=== PATIENT | female | born 1990 | race Caucasian/White ===

== ENCOUNTER → 2017-03-27 | Outpatient (CLI) | payer OTHER ==
[~2017-03-27] MED LIST: COLA100C5 PO; IBUP80TA PO; LANOOIN21 EX; LORT5TAB PO; MILKSUS PO; PRENTAB9 PO
[2017-03-27 12:35] LABS: BASO % 0.3 % (0.0-1.0); EOS # 0.2 K/mm3 (0.0-0.50); EOS % 2.8 % (0.0-3.0); LARGE UNSTAINED CELL # 0.1 K/mm3 (0.0-0.4); LARGE UNSTAINED CELL % 1.5 % (0.0-4.0); LYMPH # 1.9 K/mm3 (1.5-6.5); LYMPH % 23.9 % (24.0-44.0); MEAN CORPUSCULAR HEMOGLOBIN 26.6 pg (27.0-33.0); MEAN CORPUSCULAR HGB CONC 32.4 g/dl (32.0-36.5); MEAN CORPUSCULAR VOLUME 82.1 fl (80.0-96.0); MONO # 0.3 K/mm3 (0.0-0.8); MONO % 4.2 % (0.0-5.0); NEUTROPHILS # 5.3 K/mm3 (1.8-7.7); NEUTROPHILS % 67.2 % (36.0-66.0); PLATELET COUNT, AUTOMATED 264 k/mm3 (150-450); RED CELL DISTRIBUTION WIDTH 13.2 % (11.5-14.5); WHITE BLOOD COUNT 7.9 K/mm3 (4.0-10.0)
[2017-03-27 12:58] LABS: ALBUMIN 3.8 GM/DL (3.2-5.2); ALBUMIN/GLOBULIN RATIO 1.19 (1.00-1.93); ALKALINE PHOSPHATASE 96 U/L (45-117); ALT/SGPT 19 U/L (12-78); ANION GAP 8 MEQ/L (8-16); AST/SGOT 10 U/L (15-37); BILIRUBIN,TOTAL 0.3 MG/DL (0.2-1.0); BLOOD UREA NITROGEN 11 MG/DL (7-18); CALCIUM LEVEL 8.8 MG/DL (8.5-10.1); CARBON DIOXIDE LEVEL 28 MEQ/L (21-32); CHLORIDE LEVEL 103 MEQ/L (98-107); CHOLESTEROL LEVEL 183 MG/DL (<200); CREATININE FOR GFR 0.76 MG/DL (0.55-1.02); FREE T4 0.92 NG/DL (0.76-1.46); GLOMERULAR FILTRATION RATE > 60.0 (>60); GLUCOSE, FASTING 77 MG/DL (70-105); POTASSIUM SERUM 4.3 MEQ/L (3.5-5.1); SODIUM LEVEL 139 MEQ/L (136-145); TRIGLYCERIDES LEVEL 129 MG/DL (<150)
== END ==
LOC: M LAB 11:43
PROVIDERS: ATTEND Nurse Practitioner Family
DX: Z00.00 Encounter for general adult medical examination without abnormal findings (principal); E66.9 Obesity, unspecified; Z13.220 Encounter for screening for lipoid disorders

== ENCOUNTER → 2018-10-12 | Outpatient (REF) | payer OTHER ==
[~2018-10-12] MED LIST changes: +MILK120011 PO; -MILKSUS PO
[2018-10-12 11:47] LABS: HEMOGLOBIN 11.8 g/dl (12.0-15.5); MEAN CORPUSCULAR HEMOGLOBIN 26.7 pg (27.0-33.0); MEAN CORPUSCULAR HGB CONC 31.1 g/dl (32.0-36.5); PLATELET COUNT, AUTOMATED 240 10^3/uL (150-450); RED BLOOD COUNT 4.42 10^6/uL (4.00-5.40); WHITE BLOOD COUNT 4.9 10^3/uL (4.0-10.0)
[2018-10-12 12:19] LABS: ALBUMIN 3.8 GM/DL (3.2-5.2); ALT/SGPT 22 U/L (12-78); BILIRUBIN,TOTAL 0.4 MG/DL (0.2-1.0); BLOOD UREA NITROGEN 11 MG/DL (7-18); CALCIUM LEVEL 8.7 MG/DL (8.5-10.1); CARBON DIOXIDE LEVEL 27 MEQ/L (21-32); CHLORIDE LEVEL 108 MEQ/L (98-107); CHOLESTEROL LEVEL 147 MG/DL (<200); CHOLESTEROL RISK RATIO 4.593 (<5); CREATININE FOR GFR 0.73 MG/DL (0.55-1.30); FREE T4 1.06 NG/DL (0.76-1.46); GLOMERULAR FILTRATION RATE > 60.0 (>60); GLUCOSE, FASTING 84 MG/DL (70-100); HDL CHOLESTEROL 32 MG/DL (>40); LDL CHOLESTEROL 99 MG/DL (<100); NON-HDL-C 115 MG/DL; POTASSIUM SERUM 4.3 MEQ/L (3.5-5.1); SODIUM LEVEL 141 MEQ/L (136-145); THYROID STIMULATING HORMONE 0.799 uIU/ML (0.358-3.740); TOTAL 25(OH) VITAMIN D 13.9 NG/ML (30.0-100.0); TOTAL PROTEIN 6.7 GM/DL (6.4-8.2); TRIGLYCERIDES LEVEL 82 MG/DL (<150)
== END ==
LOC: M SFHCPLAZ 08:32
PROVIDERS: ATTEND Physician Assistant
DX: J02.9 Acute pharyngitis, unspecified (principal); E55.9 Vitamin D deficiency, unspecified; E78.5 Hyperlipidemia, unspecified

== ENCOUNTER → 2018-11-16 | Outpatient (REF) | payer OTHER ==
[2018-11-16 12:08] LABS: FOLATE 11.1 NG/ML (>5.4); PERCENT SATURATION 16.7 % (13.2-45.0)
== END ==
LOC: M SFHCPLAZ 10:00
PROVIDERS: ATTEND Physician Assistant
DX: D64.9 Anemia, unspecified (principal)

== ENCOUNTER → 2018-11-26 | Outpatient (REF) | payer OTHER ==
[2018-11-26 14:02] LABS: HEMATOCRIT 36.6 % (36.0-47.0); HEMOGLOBIN 11.8 g/dl (12.0-15.5); MEAN CORPUSCULAR HEMOGLOBIN 27.3 pg (27.0-33.0); MEAN CORPUSCULAR HGB CONC 32.2 g/dl (32.0-36.5); MEAN CORPUSCULAR VOLUME 84.7 fl (80.0-96.0); PLATELET COUNT, AUTOMATED 276 10^3/uL (150-450); RED BLOOD COUNT 4.32 10^6/uL (4.00-5.40); WHITE BLOOD COUNT 6.5 10^3/uL (4.0-10.0)
== END ==
LOC: M SFHCPLAZ 11:26
PROVIDERS: ATTEND Family Medicine
DX: D64.9 Anemia, unspecified (principal)

== ENCOUNTER → 2019-05-25 | Outpatient (REF) | payer OTHER ==
[2019-05-25 11:57] LABS: BASO % 0.3 % (0.0-1.0); EOS # 0.2 10^3/uL (0.0-0.5); EOS % 2.7 % (0.0-3.0); HEMATOCRIT 41.4 % (36.0-47.0); LYMPH # 1.4 10^3/uL (1.5-5.0); LYMPH % 18.9 % (24.0-44.0); MEAN CORPUSCULAR HEMOGLOBIN 27.6 pg (27.0-33.0); MEAN CORPUSCULAR HGB CONC 31.4 g/dl (32.0-36.5); MEAN CORPUSCULAR VOLUME 87.9 fl (80.0-96.0); MONO # 0.4 10^3/uL (0.0-0.8); MONO % 5.3 % (0.0-5.0); NEUTROPHILS # 5.3 10^3/uL (1.5-8.5); NEUTROPHILS % 72.4 % (36.0-66.0); PLATELET COUNT, AUTOMATED 275 10^3/uL (150-450); RED BLOOD COUNT 4.71 10^6/uL (4.00-5.40); WHITE BLOOD COUNT 7.4 10^3/uL (4.0-10.0)
[2019-05-25 12:16] LABS: HCG, SERUM QUALITATIVE NEGATIVE (NEGATIVE)
[2019-05-25 12:18] LABS: ALBUMIN 3.8 GM/DL (3.2-5.2); ALT/SGPT 22 U/L (12-78); BILIRUBIN,TOTAL 0.5 MG/DL (0.2-1.0); BLOOD UREA NITROGEN 9 MG/DL (7-18); CALCIUM LEVEL 8.9 MG/DL (8.5-10.1); CARBON DIOXIDE LEVEL 28 MEQ/L (21-32); CHLORIDE LEVEL 108 MEQ/L (98-107); CREATININE FOR GFR 0.88 MG/DL (0.55-1.30); FREE T4 0.98 NG/DL (0.76-1.46); GLOMERULAR FILTRATION RATE > 60.0 (>60); GLUCOSE, FASTING 85 MG/DL (70-100); POTASSIUM SERUM 4.2 MEQ/L (3.5-5.1); SODIUM LEVEL 140 MEQ/L (136-145)
== END ==
LOC: M SFHCPLAZ 09:17
PROVIDERS: ATTEND Family Medicine
DX: R11.0 Nausea (principal); N92.0 Excessive and frequent menstruation with regular cycle; R23.2 Flushing

== ENCOUNTER 2019-08-12 07:47 | Emergency (ER) | payer OTHER ==
[~2019-08-12] VITALS: Ht 162.6 cm; Wt 112.3 kg
[2019-08-12 08:33] LABS: BASO % 0.3 % (0.0-1.0); EOS # 0.1 10^3/uL (0.0-0.5); EOS % 1.3 % (0.0-3.0); HEMATOCRIT 39.3 % (36.0-47.0); LYMPH # 1.6 10^3/uL (1.5-5.0); LYMPH % 27.3 % (24.0-44.0); MEAN CORPUSCULAR HEMOGLOBIN 27.6 pg (27.0-33.0); MEAN CORPUSCULAR HGB CONC 33.1 g/dl (32.0-36.5); MEAN CORPUSCULAR VOLUME 83.4 fl (80.0-96.0); MONO # 0.3 10^3/uL (0.0-0.8); MONO % 5.3 % (0.0-5.0); NEUTROPHILS # 3.9 10^3/uL (1.5-8.5); NEUTROPHILS % 65.5 % (36.0-66.0); PLATELET COUNT, AUTOMATED 255 10^3/uL (150-450); RED BLOOD COUNT 4.71 10^6/uL (4.00-5.40)
[2019-08-12] MEDS ORDERED: KETOROLAC 30 MG/ML VIAL (J1885) IV ONE (09:00)
[2019-08-12] MEDS ORDERED: NS 1,000 ML IV ONE (09:00)
[2019-08-12] MEDS ORDERED: ONDANSETRON 4MG/2ML VIAL (J2405) IV ONE (09:00)
[2019-08-12 09:12] LABS: ALBUMIN 3.7 GM/DL (3.2-5.2); ALT/SGPT 62 U/L (12-78); AMYLASE 26 U/L (25-115); BILIRUBIN,DIRECT < 0.1 MG/DL (0.0-0.2); BILIRUBIN,TOTAL 0.5 MG/DL (0.2-1.0); BLOOD UREA NITROGEN 13 MG/DL (7-18); CALCIUM LEVEL 8.4 MG/DL (8.5-10.1); CARBON DIOXIDE LEVEL 24 MEQ/L (21-32); CHLORIDE LEVEL 108 MEQ/L (98-107); CREATININE FOR GFR 0.96 MG/DL (0.55-1.30); GLOMERULAR FILTRATION RATE > 60.0 (>60); GLUCOSE, FASTING 94 MG/DL (70-100); LIPASE 138 U/L (73-393); POTASSIUM SERUM 3.8 MEQ/L (3.5-5.1); SODIUM LEVEL 140 MEQ/L (136-145); TOTAL PROTEIN 7.2 GM/DL (6.4-8.2)
--- NOTE | 2019-08-12 09:20 | REP ---
CT abdomen pelvis without IV and oral contrast for stone: There are no comparisons. The visualized lung tidwell are unremarkable. The unenhanced hepatic parenchyma, gallbladder, pancreas and spleen are normal size, homogeneous and unremarkable. The adrenals are unremarkable. There is right hydronephrosis. There is a 4 mm right ureteral calculus at the level of the L4 superior endplate. There is no perinephric stranding. The left kidney is unremarkable. The abdominal aorta is unremarkable. There is no bowel distension. Mesentery is unremarkable. Pelvis: The appendix is unremarkable. The uterus and adnexa are unremarkable. The bladder is collapsed and cannot be further evaluated. The pelvic bowel loops are unremarkable. Impression: There is a 4 mm right ureteral calculus as described resulting in right hydronephrosis. There is no perinephric stranding. Electronically Signed by James Sanchez MD 08/12/2019 09:13 A
[2019-08-12] MEDS ORDERED: diphenhydrAMINE INJ 50MG/ML VIAL (J1200) IV ONE (09:45)
[2019-08-12] MEDS ORDERED: ONDA4TAB6 PO (10:38)
[2019-08-12] MEDS ORDERED: NORC1TAB7 PO (10:38)
[2019-08-12] MEDS ORDERED: FLOM0.4C39 PO (10:38)
[2019-08-12 10:50] VITALS: BP 119/58
== END 2019-08-12 10:57 | disposition home or self-care (01) ==
LOC: M ED 07:47
DX: N20.0 Calculus of kidney (principal); J45.909 Unspecified asthma, uncomplicated; Z88.5 Allergy status to narcotic agent
CPT/HCPCS: 74176; 80048; 80076; 81001; 82150; 83690; 85025; 87086; 96361; 96374; 96375; 99284; J1200; J1885; J2405

== ENCOUNTER → 2020-01-28 | Outpatient (CLI) | payer OTHER ==
[~2020-01-28] MED LIST changes: +FLOM0.4C39 PO; +NORC1TAB7 PO; +ONDA4TAB6 PO
== END ==
LOC: M LABSMTC 11:22
PROVIDERS: ATTEND Family Medicine
DX: Z03.818 Encounter for observation for suspected exposure to other biological agents ruled out (principal); Z11.59 Encounter for screening for other viral diseases

== ENCOUNTER 2024-06-14 07:52 | Emergency (ER) | payer OTHER ==
[~2024-06-14] VITALS: Ht 162.6 cm; Wt 116.9 kg
[~2024-06-14 07:52] MED LIST changes: +ONDA-282 PO; -ONDA4TAB6 PO
[2024-06-14 07:55] VITALS: BP 129/87; TEMP 96.8; O2SAT 98
[2024-06-14] MEDS ORDERED: CEFD1CAP9 (08:02)
[2024-06-14] MEDS: methylPREDNISolone 125MG 2ML VIAL IV ONE (08:45)
[2024-06-14] MEDS: diphenhydrAMINE 50MG/ML VIAL IV ONE (08:45)
[2024-06-14] MEDS: FAMOTIDINE 20MG/2ML VIAL IVP ONE (08:54)
[2024-06-14] MEDS ORDERED: BENA25CA4 PO (09:24)
[2024-06-14] MEDS ORDERED: PRED10TA2 PO (09:24)
[2024-06-15] MEDS ORDERED: DIPH50TA6 PO (12:31)
== END 2024-06-14 09:33 | disposition home or self-care (01) ==
LOC: M ED 07:52
DX: L29.89 Other pruritus (principal); R21 Rash and other nonspecific skin eruption; J45.909 Unspecified asthma, uncomplicated; Z88.5 Allergy status to narcotic agent; Z79.51 Long term (current) use of inhaled steroids; Z79.52 Long term (current) use of systemic steroids
CPT/HCPCS: 96374; 96375; 99284; J1200; J2919; S0028

== ENCOUNTER 2024-06-15 12:16 | Emergency (ER) | payer OTHER ==
[~2024-06-15] VITALS: Ht 162.6 cm; Wt 116.5 kg
[~2024-06-15 12:16] MED LIST changes: +BENA25CA4 PO; +CEFD1CAP9; +PRED10TA2 PO
[2024-06-15] MEDS ORDERED: DIPH50TA6 PO (12:31)
[2024-06-15 14:29] VITALS: TEMP 98.6
[2024-06-15] MEDS: methylPREDNISolone 125MG 2ML VIAL IV ONE (15:30)
[2024-06-15] MEDS: FAMOTIDINE IV BAG 20 MG in IV 1 EA IV ONE (15:31)
[2024-06-15 16:00] VITALS: BP 120/63; O2SAT 99
== END 2024-06-15 16:29 | disposition home or self-care (01) ==
LOC: M ED 12:16
DX: T78.40XA Allergy, unspecified, initial encounter (principal); Z88.5 Allergy status to narcotic agent; Z79.51 Long term (current) use of inhaled steroids; Z79.52 Long term (current) use of systemic steroids; Z79.899 Other long term (current) drug therapy
CPT/HCPCS: 96374; 96375; 99284; J2919; S0028

== ENCOUNTER 2024-06-17 08:06 | Emergency (ER) | payer OTHER ==
[~2024-06-17] VITALS: Ht 162.6 cm; Wt 117.9 kg
[~2024-06-17 08:06] MED LIST changes: +DIPH50TA6 PO
[2024-06-17] MEDS ORDERED: ZYRTTAB8 PO (08:18)
[2024-06-17] MEDS ORDERED: DIPH-429 (08:18)
[2024-06-17] MEDS: ONDANSETRON 4MG ORAL DISINTEGRATING TAB PO ONE (08:53)
[2024-06-17] MEDS: CETIRIZINE (ZyrTEC) 10 MG TAB PO ONE (08:53)
[2024-06-17] MEDS: ALBUTEROL 90 MCG/ACT 8GM HFA INHALER INH ONE (09:00)
[2024-06-17] MEDS: predniSONE 20 MG TAB PO ONE (11:23)
[2024-06-17] MEDS ORDERED: CETI-24 PO (11:24)
[2024-06-17] MEDS ORDERED: PRED20TA PO (11:24)
[2024-06-17] MEDS ORDERED: VENTAER INH (11:27)
[2024-06-17 11:44] VITALS: BP 121/68; TEMP 97.6; O2SAT 98
== END 2024-06-17 11:48 | disposition home or self-care (01) ==
LOC: M ED 08:06
DX: L50.9 Urticaria, unspecified (principal); F17.210 Nicotine dependence, cigarettes, uncomplicated; Z88.5 Allergy status to narcotic agent; Z79.51 Long term (current) use of inhaled steroids; Z79.52 Long term (current) use of systemic steroids; Z79.899 Other long term (current) drug therapy
CPT/HCPCS: 94640; 99284; J7512

== ENCOUNTER 2025-02-12 20:08 | Emergency (ER) | payer OTHER ==
[~2025-02-12] VITALS: Ht 165.1 cm; Wt 114.5 kg
[~2025-02-12 20:08] MED LIST changes: +CETI-24 PO; +DIPH-429; -FLOM0.4C39 PO; +PRED20TA PO; +TAMS-18 PO; +VENTAER INH; +ZYRTTAB8 PO
[2025-02-12 21:07] LABS: BASO # 0.0 10^3/uL (0.0-0.2); BASO % 0.3 % (0.0-1.0); EOS # 0.2 10^3/uL (0.0-0.5); EOS % 1.9 % (0.0-3.0); LYMPH # 2.3 10^3/uL (1.5-5.0); LYMPH % 18.2 % (24.0-44.0); MONO # 0.7 10^3/uL (0.0-0.8); MONO % 5.4 % (2.0-8.0); NEUTROPHILS # 9.2 10^3/uL (1.5-8.5); NEUTROPHILS % 74.0 % (36.0-66.0); PLATELET COUNT, AUTOMATED 317 10^3/uL (150-450)
[2025-02-12 21:32] LABS: ALT/SGPT 19 U/L (7.0-40); AST/SGOT 15 U/L (<34); CALCIUM LEVEL 9.1 MG/DL (8.5-10.1); CARBON DIOXIDE LEVEL 24 MMOL/L (20-31); CHLORIDE LEVEL 105 MMOL/L (98-107); CREATININE FOR GFR 0.84 MG/DL (0.55-1.30); GLOMERULAR FILTRATION RATE > 90.0 (>60); POTASSIUM SERUM 3.7 MMOL/L (3.5-5.1); SODIUM LEVEL 142 MMOL/L (136-145)
[2025-02-12 22:05] LABS: KETONE, URINE AUTO RFX TRACE mg/dL (NEGATIVE); LEUKOCYTE ESTERASE UR AUTO RFX NEGATIVE (NEGATIVE); NITRITE, URINE AUTO RFX NEGATIVE (NEGATIVE); RBC, URINE AUTO RFX 0 /HPF (0-3); SQUAM EPITHELIAL CELL UR AURFX 2 /HPF (0-6); WBC, URINE AUTO RFX 1 /HPF (0-3)
[2025-02-12] MEDS ORDERED: ONDA-282 PO (23:20)
[2025-02-12] MEDS: ONDANSETRON 4MG 2ML VIAL IV ONE (23:23)
[2025-02-12 23:24] VITALS: BP 142/86; TEMP 97; O2SAT 100
== END 2025-02-12 23:27 | disposition home or self-care (01) ==
LOC: M ED 20:08
DX: R11.2 Nausea with vomiting, unspecified (principal); R19.7 Diarrhea, unspecified; Z88.5 Allergy status to narcotic agent; Z79.51 Long term (current) use of inhaled steroids; Z79.899 Other long term (current) drug therapy; Z79.52 Long term (current) use of systemic steroids
CPT/HCPCS: 80048; 80076; 81001; 83690; 85025; 96374; 99283; J2405